=== PATIENT | female | born 1990 | race Hispanic/Latino ===

== ENCOUNTER 2024-06-09 01:14 | Emergency (ER) | payer OTHER ==
[~2024-06-09] VITALS: Ht 170.2 cm; Wt 63.5 kg
--- NOTE | 2024-06-09 01:20 | NUR ---
UA CUP PROVIDED
--- NOTE | 2024-06-09 01:21 | NUR ---
UA COLLECTED AND SENT
[2024-06-09 01:53] LABS: APPEARANCE,URINE CLOUDY (CLEAR); BILIRUBIN,URINE NEGATIVE (NEGATIVE); COLOR,URINE LIGHT-YELLOW (YELLOW); GLUCOSE, URINE (UA) NEGATIVE (NEGATIVE); KETONES,URINE NEGATIVE (NEGATIVE); LEUKOCYTE ESTERASE ,URINE 250 Leu/uL (NEGATIVE); NITRATE,URINE NEGATIVE (NEGATIVE); OCCULT BLOOD,URINE NEGATIVE (NEGATIVE); PH,URINE 5.5 (5.0-8.0); PROTEIN,URINE NEGATIVE (NEGATIVE); UROBILINOGEN,URINE 0.2 mg/dL (0.2-1.0)
[2024-06-09 01:55] LABS: ADD UA MICROSCOPIC YES
[2024-06-09 01:58] LABS: BACTERIA,URINE FEW /HPF (None Seen); MUCUS,URINE RARE LPF (None Seen); SQUAMOUS EPITHELIAL CELL,UR FEW /HPF (0-2)
--- NOTE | 2024-06-09 02:24 | ERN ---
ED Note History of Present Illness Stated Complaint: ABD PAIN Chief Complaint: Abdominal Pain Time Seen by MD: 01:20 Dictation: Patient is a 34-year-old female here with immigration with complaints of right upper quadrant pain she has had for 6-7 days with nausea vomiting. States the pain is worse after food. She denies fever chills no primary care doctor and she is in custody. Allergies: Coded Allergies: No Known Allergies (Unverified Allergy, Unknown, 06/09/24) Past Medical History Past Medical History: Other Additional Past Medical Hx: " SLUDGED GALLBLADDER" Surgical History: None History: Not Applicable LMP: May 11, 2024 RN Note Reviewed/Agreed w/PFSH: Yes Review of System Dictation CONSTITUTIONAL: Negative except for HPI HEAD/FACE: Negative except for HPI EENT: Negative except for HPI RESPIRATORY: Negative except for HPI GASTROINTESTINAL/ABDOMINAL: Negative except for HPI right upper quadrant pain with nausea vomiting GENITOURINARY: Negative except for HPI MUSCULOSKELETAL: Negative except for HPI INTEGUMENTARY: Negative except for HPI NEUROLOGICAL/PSYCH: Negative except for HPI HEMATOLOGIC/LYMPHATIC: Negative except for HPI All Systems Negative, Except as noted above. 13 point review of systems assessed and all negative except for above. Initial Vital Sign VS Vital Signs Date Time Temp Pulse Resp B/P (MAP) Pulse Ox O2 Delivery O2 Flow Rate FiO2 06/09/24 01:15 98.2 76 18 127/77 99 Room Air 06/09/24 03:15 0 21 Physical Exam Dictation Vital Signs reviewed General Appearance: Alert, oriented x 3, moderate acute distress, well developed, nourished. Head and Face: non-traumatic. Eyes: PERRL, pink conjunctivas, eyelid no trauma, anterior chamber with arcus senilis. Ears: Pinnas intact and no signs of trauma or erythema ear canals clear and no discharge TM no erythema Nose: No discharge, no bleeding. Oropharynx: Mouth normal, tongue pink, pharynx clear,no erythema, tonsils no exudates, no abscesses noted, mucous membrane moist Neck: Supple, non-tender, no thyromegaly, no masses, no JVD, no bruits Breast:Deferred Chest:No tenderness, no crepitus, no paradoxical movement, no retractions Lungs:Clear, well-ventilated, symmetric, no rales, no wheezing, no rhonchi, no stridor, good breath sounds bilaterally Heart: Regular rate, regular rhythm, no murmur, no gallops Vascular: no peripheral edema, Abdomen: Soft, positive bowel sounds, nondistended, no guarding, Positive Martines's sign Rectal: Deferred Genital: Deferred Neurological: Normal speech, motor function intact, sensory function intact Musculoskeletal: Neck nontender, full range of motion, back nontender, full range of motion, Extremities: nontender, full range of motion Skin: Color pink, dry, no turgor, no rash, no lacerations, no abrasions, no contusions. Lymphatic: Deferred Results (Laboratory/Radiology) Laboratory/Radiology Laboratory Tests Test 06/09/24 01:30 06/09/24 02:34 Urine Color LIGHT-YELLOW (YELLOW) Urine Appearance CLOUDY (CLEAR) H Urine pH 5.5 (5.0-8.0) Urine Specific [place] 1.008 (1.001-1.031) Urine Protein NEGATIVE mg/dL (NEGATIVE) Urine Glucose (UA) NEGATIVE mg/dL (NEGATIVE) Urine Ketones NEGATIVE mg/dL (NEGATIVE) Urine Occult Blood NEGATIVE (NEGATIVE) Urine Nitrate NEGATIVE (NEGATIVE) Urine Bilirubin NEGATIVE mg/dL (NEGATIVE) Urine Urobilinogen 0.2 mg/dL (0.2-1.0) Urine Leukocyte Esterase 250 Jose/uL (NEGATIVE) H Urine RBC 2-5 /HPF (0-1) H Urine WBC 2-5 /HPF (0-1) H Urine Squamous Epithelial Cells FEW /HPF (0-2) Urine Bacteria FEW /HPF (None Seen) Urine HCG, Qualitative NEGATIVE (NEGATIVE) White Blood Count 7.5 K/uL (4.8-10.8) Red Blood Count 4.47 MIL/uL (4.00-5.50) Hemoglobin 14.2 g/dL (12.0-16.0) Hematocrit 41.4 % (36-48) Mean Corpuscular Volume 92.6 fL (79-99) Mean Corpuscular Hemoglobin 31.8 pg (27.0-33.0) Mean Corpuscular Hemoglobin Concent 34.3 g/dL (32.0-36.0) Red Cell Distribution Width 11.8 % (11.0-15.5) Platelet Count 244 K/uL (130-400) Mean Platelet Volume 9.3 fL (7.5-10.5) Immature Granulocyte % (Auto) 0.3 % (0-1) Neutrophils (%) (Auto) 51.0 % (40.0-77.0) Lymphocytes (%) (Auto) 37.1 % (21.0-51.0) Monocytes (%) (Auto) 10.0 % (3.0-13.0) Eosinophils (%) (Auto) 1.2 % (0.0-8.0) Basophils (%) (Auto) 0.4 % (0.0-5.0) Neutrophils # (Auto) 3.9 K/uL (1.8-7.7) Lymphocytes # (Auto) 2.8 K/uL (1.0-4.8) Monocytes # (Auto) 0.8 K/uL (0.1-1.0) Eosinophils # (Auto) 0.09 K/uL (0.00-0.70) Basophils # (Auto) 0.03 K/uL (0.00-0.20) Absolute Immature Granulocyte (auto 0.02 K/uL (0-1) Nucleated Red Blood Cells 0.0 % (0.0-0.19) Sodium Level 141 mmol/L (136-145) Potassium Level 3.5 mmol/L (3.5-5.1) Chloride Level 106 mmol/L (101-111) Carbon Dioxide Level 24 mmol/L (21-32) Blood Urea Nitrogen 7 mg/dL (7-18) Creatinine 0.6 mg/dL (0.5-1.0) Glomerular Filtration Rate Calc 121 mL/min (>90) Random Glucose 99 mg/dL (70-105) Total Calcium 9.3 mg/dL (8.5-10.1) Lipase 31 U/L (16-77) Labs Reviewed?: Yes ED Course ED Course Orders Procedure Category Date Status Time Urinalysis Profile LAB 06/09/24 Complete 01:37 ,Urine Test LAB 06/09/24 Complete 01:37 Culture Urine VAHE 06/09/24 In Process 01:55 Cbc With Differential LAB 06/09/24 Complete 02:21 Us Abdominal Ruq\\Ltd US 06/09/24 Taken 02:21 0.9%Nacl 1000ml (Ns PHA 06/09/24 Complete 1000ml) 02:30 Ketorolac PHA 06/09/24 Complete Tromethamine 30mg/Ml 02:30 Ondansetron 4mg Inj PHA 06/09/24 Complete (Zofran 4mg Inj) 02:30 Lipase LAB 06/09/24 Complete 02:21 Basic Metabolic Panel LAB 06/09/24 Complete 02:21 Cefazolin Sodium 1 Gm PHA 06/09/24 Logged Vial (Ancef 1 Gm V 05:00 Current Medications Medications (Trade) Dose Ordered Sig/Joseph Route PRN Reason Start Time Stop Time Status Last Admin Dose Admin Ketorolac Tromethamine (toRADol) 30 mg ONCE ONCE IVP 06/09/24 02:30 06/09/24 02:31 DC 06/09/24 03:15 Ondansetron HCl (zoFRAN 4MG INJ) 4 mg ONCE ONCE IVP 06/09/24 02:30 06/09/24 02:31 DC 06/09/24 03:14 Sodium Chloride 1,000 ml @ 0 mls/hr ONCE ONCE IV 06/09/24 02:30 06/09/24 02:31 DC 06/09/24 03:14 Vital Signs Date Time Temp Pulse Resp B/P (MAP) Pulse Ox O2 Delivery O2 Flow Rate FiO2 06/09/24 03:15 98.1 56 18 101/55 98 Room Air* 0 21 06/09/24 01:15 98.2 76 18 127/77 99 Room Air Medical Decision Making MDM Patient's CBC and chemistry panel is normal. The right upper quadrant ultras ound shows sludge in the gallbladder but no evidence of gallbladder obstruction or common bile duct obstruction. No evidence of cholecystitis. There still is sand in the gallbladder. Patient does have a large leukocyte esterase activity in her urine. I will give the patient a g of Ancef IV for her urinary tract symptoms and then three days of oral antibiotics. I explained to her that eventually the gallbladder will probably need to come out but right now there was no emergency as there is no white count and no thickened gallbladder wall and no fluid around the gallbladder. She has biliary colic. DX & DISP Disposition: Discharge Departure Impression: Primary Impression: Biliary colic Condition: Stable Scripts Cephalexin Monohydrate (Keflex) 500 Mg Cap 500 MG PO QID for 3 Days, #12 CAP Prov: ADDISON PRADHAN MD 06/09/24 Additional Instructions: Please return if when you have your right upper quadrant pain you also have fevers chills elevated temperature signs and symptoms of an infection, or if you can not eat or drink and become dehydrated. Referrals: SELF,REFERRAL (PCP) JENNYFER JI NP Jun 09, 2024 02:24 ADDISON PRADHAN MD Jun 09, 2024 04:49
--- NOTE | 2024-06-09 02:44 | NUR ---
PT PACING IN LOBBY WITH BP AGENT. GAIT WNL, NO ACUTE DISTRESS NOTED. AMBULATES WITHOUT AID. EVEN CHEST RISE AND FALL NOTED
[2024-06-09 02:45] LABS: BASOPHILS # (AUTO) 0.03 K/uL (0.00-0.20); BASOPHILS % (AUTO) 0.4 % (0.0-5.0); EOSINOPHILS # (AUTO) 0.09 K/uL (0.00-0.70); EOSINOPHILS % (AUTO) 1.2 % (0.0-8.0); HEMATOCRIT 41.4 % (36-48); IMMATURE GRANULOCYTE ABSOLUTE 0.02 K/uL (0-1); LYMPHOCYTES # (AUTO) 2.8 K/uL (1.0-4.8); LYMPHOCYTES % (AUTO) 37.1 % (21.0-51.0); MEAN CORPUSCULAR HEMOGLOBIN 31.8 pg (27.0-33.0); MEAN CORPUSCULAR HGB CONC 34.3 g/dL (32.0-36.0); MEAN CORPUSCULAR VOLUME 92.6 fL (79-99); MONOCYTES # (AUTO) 0.8 K/uL (0.1-1.0); NEUTROPHILS # (AUTO) 3.9 K/uL (1.8-7.7); PLATELET COUNT (AUTO) 244 K/uL (130-400); RED BLOOD CELL COUNT(AUTO) 4.47 MIL/uL (4.00-5.50); RED CELL DISTRIBUTION WIDTH 11.8 % (11.0-15.5); WHITE BLOOD COUNT (AUTO) 7.5 K/uL (4.8-10.8)
[2024-06-09 02:56] LABS: CREATININE 0.6 mg/dL (0.5-1.0); POTASSIUM 3.5 mmol/L (3.5-5.1)
[2024-06-09] MEDS: ondanSETRON 4MG INJ IVP ONE (03:14)
[2024-06-09] MEDS: 0.9%NACL 1000ML 1,000 ML IV ONE (03:14)
[2024-06-09] MEDS: ketOROlac 30MG VIAL (30MG/ML) IVP ONE (03:15)
[2024-06-09] MEDS ORDERED: CEPH500B PO (04:54)
[2024-06-09] MEDS: ceFAZolin SODIUM 1 GM VIAL IVPB ONE (04:55)
[2024-06-09 05:14] VITALS: BP 110/54; PULSE 60; RESP 18; TEMP 97.6; O2SAT 99
--- NOTE | 2024-06-09 08:17 | HMCIMG ---
ULTRASOUND ABDOMEN LIMITED INDICATION: Right upper abdominal pain COMPARISON: None FINDINGS: The liver is normal in size and echogenicity; no focal lesion demonstrated. The common bile duct diameter measures 1.9 mm. No evidence for calculi, sludge or pericholecystic fluid. No sonographic Martines's sign elicited by the ultrasound turbine operator. Wall thickness measures 2.0 mm. Visible portions of the pancreas appear normal. The right kidney measures 9.0 x 4.0 x 5.0 cm,and is normal in echogenicity, without evidence for hydronephrosis.No shadowing stones demonstrated. No free fluid demonstrated. IMPRESSION: No acute right upper abdominal abnormality noted.
== END 2024-06-09 05:16 ==
LOC: EEVIPCON 01:14 → EDH 01:14
DX: K80.50 Calculus of bile duct without cholangitis or cholecystitis without obstruction (principal)
CPT/HCPCS: 99285; 96365; 76705; 96375; 80048; 83690; 85025; 87086; 81001; 81025; 36415; J1885; J0690; J7030; J2405